=== PATIENT | female | born 1995 | race Caucasian/White ===

== ENCOUNTER 2020-09-09 17:20 | Outpatient (REF) | payer BC, SELFPAY ==
[2020-09-12 09:59] LABS: COVID-19 RT-PCR Result NEGATIVE (Negative)
== END 2020-09-09 17:40 ==
LOC: NCHCN 17:20
PROVIDERS: PCP Registered Nurse; Visit Provider Nurse Practitioner Family
DX: Z20.828 Contact with and (suspected) exposure to other viral communicable diseases (principal)
CPT/HCPCS: U0003

== ENCOUNTER → 2024-04-15 02:34 | Outpatient (CLI) | payer OTHER, SELFPAY ==
--- NOTE | 2024-04-15 | DI.US_ITS ---
Exam(s) US BREAST RT COMPLETE MG MAMMO DIAGNOSTIC BI EXAM: MG MAMMO DIAGNOSTIC BI AND COMPLETE RIGHT BREAST ULTRASOUND CLINICAL HISTORY: LUMP RT BREAST N63.10 5 MM FIRM ROUND MASS APPROX 12:00 AREOLA SUPERIOR TO. TECHNIQUE: BILATERAL CC AND MLO mammographic images were obtained with 3D tomosynthesis technique an d utilizing computer aided detection (CAD). Also performed spot compression view of the retroareolar region of the right breast. COMPLETE RIGHT BREAST ULTRASOUND was performed including all 4 quadrants as well as the retroareolar region and right axilla. COMPARISON: None. This is a baseline diagnostic study on this 29-year-old who feels a lump in the 1 2 o'clock retroareolar region of her right breast x1 week. Denies concerning nipple discharge. FINDINGS: DIAGNOSTIC BILATERAL MAMMOGRAM: There are no CAD designations There are no obvious spiculated masses nor malignant-appearing microcalcification groups in either br east. However, in the immediate retroareolar region of the right breast there is a well-defined small nodul e which contains a single peripheral calcification therein. There is no significant architectural distortion or skin thickening-retraction. COMPLETE RIGHT BREAST ULTRASOUND: There is a solitary ultrasound finding in the in the right breast which is in the retroareolar region and exactly corresponds to her palpable finding. This is a well-defined round solid 6 x 5 mm nodule which contains a single small hyperechoic focus consistent with the calcification which is seen on t he mammogram. I suspect this is a papilloma. This finding exhibits neutral through transmission. There are no other ultrasound findings in all 4 quadrants and scanning of the right axilla is negativ e for significant adenopathy. IMPRESSION: There is a 6 x 5 mm solid nodule in the retroareolar region of the right breast which corresponds to for palpable finding. I suspect that this is a papilloma. Biopsy is recommended The patient was informed of the findings and follow-up recommendations by myself prior to leaving the department today. BI-RADS Category 4 - Suspicious Abnormality: Biopsy should be considered Breast Density - Category B - Scattered areas of fibroglandular density Breast density Category C or D implies that the patient has dense breast tissue. Dense breast tissue can make it harder to find cancer on a mammogram. Dense breast tissue is also associated with an incr eased risk of breast cancer. This information about the result of the mammogram report was provided to the patient to raise their awareness. Use this report when you speak with the patient about their risks for breast cancer, which includes their family history. At that time, you may recommend additional screening tests (Ultrasoun d or MRI) as these tests may add significant information. A negative radiographic report should not delay biopsy if a dominant or clinically suspicious mass is present. Up to ten percent of cancers are not identified on mammography. A negative report may reinforce clinical impression. Adenosis and dense breasts may obscure an underlying neoplasm. False positive reports average 6 to 10%. Patient will receive a letter notifying them of these results.
== END ==
PROVIDERS: PCP Registered Nurse; Visit Provider Nurse Practitioner Primary Care
DX: N63.10 Unspecified lump in the right breast, unspecified quadrant (principal)
CPT/HCPCS: 76642; 77062; 77066; G0279